=== PATIENT | male | born 1960 | race Caucasian/White ===

== ENCOUNTER → 2023-03-12 | Outpatient (CLI) | payer OTHER, SELFPAY ==
--- NOTE | 2023-03-12 14:26 | CR.HP_ITS ---
CR - History & Physical General Arrival date:: 03/12/23 Arrival time:: 14:28 Date of Referral:: 03/05/23 Date of CR Evaluation:: 03/12/23 Referring Physician: Dr. Catarina Awan Primary Diagnosis: S/P ASD repair, TV repair, NANCY ligation with clip History of Present Cardiac Event Onset Date Heart valve replacement or repair:: Yes Type of Symptoms:: none Interventions with present event:: picked up from X-Ray with fall from truck. Medications Ambulatory Orders Medication Instructions Recorded Lactobacillus combo no.23 PO 03/12/23 amoxicillin 2,000 mg PO PRN 03/12/23 aspirin 81 mg tablet,delayed 81 mg PO DAILY 03/12/23 release lisinopril 10 mg tablet (Zestril) 10 mg PO DAILY 03/12/23 multivitamin 1 tab PO DAILY 03/12/23 testosterone 50 mg/5 gram (1 %) 50 mg transdermal DAILY 03/12/23 transdermal gel (Testim) timolol 0.5 % eye drops 1 drp EACH EYE DAILY 03/12/23 Allergies Allergies gabapentin Allergy (Mild, Verified 03/12/23 14:37) forgetfullness Sleep Disorder Evaluation Hx of Sleep Apnea: No Do you snore loudly (louder than talking or can be heard through closed doors)?: No (Had 3 seperate sleep studies done prior to surgery. All negative) Do you often feel tired/ fatigued/ sleepy during daytime?: Yes (intermittent through the day.) Has anyone observed you stop breathing during sleep?: No History of Hypertension (for STOP score): No STOP Results: Negative Advanced Directives Advanced Directives Power of Refrigeration Mechanic: Yes Living Will: Yes Advance Directives Information Provided: No Advance Directives on File: No DNR Order?:: No MOLST See MOLST form: No Past Medical History Covid-19 Screening Physicial Symptoms Fever: No Unexplained muscle aches: No Current respiratory symptoms: No Upper respiratory infections symptoms: No Gastro-intestinal symptoms: No Pxy-Whsi-Ptcahp symptoms: No Other Clinical Concerns Has tested positive for COVID-19 in last 30 days: No Date of testin03/12/23 (fully vaccinated) Exposure Risk Had contact w/person w/symptoms or Covid-19 (+) last 14 days: No Has High Risk Exposures ID'd by Health dept/Inf Control team: No Pertinent Comorbidities 65 years or older:: No Lives in Assisted Living facility:: No Has a chronic lung disease or moderate to severe asthma:: No Has a serious heart condition:: Yes Immunocompromised:: No Severely obese (Body Mass Index of 40 or higher):: No Diabetic:: No Has chronic kidney disease undergoing dialysis:: No Has liver disease:: Yes Past Medical Illness Past Medical History (Updated 03/12/23 @ 14:47 by Flip Moreno CRT, [employer] LEADER, BS) Abnormal cardiovascular stress test R94.39 Arthritis, 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 Benign neoplasm of colon D12.6 Cataract (lens) fragments in eye following cataract surgery H59.029 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 M54.42, G89.29 Colonic polyp K63.5 Congenital hydrocephalus Q03.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 Degenerative disk disease 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 Encounter for colonoscopy due to history of colonic polyp Z12.11, Z86.010 GERD (gastroesophageal reflux disease) K21.9 Glaucoma H40.9 Hearing loss H91.90 Leukopenia D72.819 Mixed dyslipidemia E78.2 Ostium secundum type atrial septal defect Q21.11 Other secondary pulmonary hypertension I27.29 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 Renal cyst N28.1 Right ventricular dysfunction I51.9 Spasm of back muscles M62.830 Past Surgical History Past Surgical History (Updated 03/12/23 @ 14:47 by Flip Moreno CRT, H[employer] RES[employer] LEADER, BS) Vasectomy status Z98.52 Social History Smoking History Smoking Status: Former smoker (Quit smoking 30 years ago.) Hx Tobacco Use: No Hx Smoking Exposure: No Alcohol Use Alcohol Usage: No Substance Abuse Hx Substance Use: No Occupation Occupation (List type of work in comments):: Retired Hobbies, Recreation, Social Activities Hobbies: Walking, Exercise and Other (travel) Recreational Activities: I am able to engage in most, but not all activities Social Environment Status Marital Status: Current Living Arrangements Living Environment:: Family Children How many children do you have?: 2 Do any of your children live nearby?: No ([place], [place]) Safety Do you feel safe in your surroundings?: Yes Assistance Do you need any assistance at home?: no Review of Systems Review of Systems Hints Review of Present Symptoms: Reports Shortness of Breath with Exertion (passable, minor), Fatigue (very minor), Heart Arrhythmia/Irregularities (NSR, post operative developed Right BBB, atrial flutter), Appetite - Normal and Sleep - Normal; Denies Shortness of Breath at Rest, Operative Discomfort, Angina, Dizziness/Lightheadedness, Appetite - Special Diet or Sexual Changes Pain Is Patient Pain Free?: Yes Pain Location: other (shoulders still sore from surgery, ) Pain Level: 10/20 Risk Factor Assessment Vital Signs Respiratory Rate: 12 Pulse Ox: 97 Blood Pressure: 102/58 Pulse Pulse Rate: 71 Pulse Rhythm: Regular Hypertension Blood Pressure Sitting - Left Arm: 102/56 Diabetes Nutrition Referral for Diabetes: No Obesity Height: 6 ft 1 in Weight:: 175 lb Weight in Pounds: 175.0 lbs Weight Source: Stated by Patient Body Mass Index (BMI): 23.1 Physical Inactivity Physical Inactivity: Recreational activity (walking 1 mile per day at relaxed pace) Risk Stratification Risk Guidelines: Lowest Risk: Risk Factor for Smoking, Risk Factor for Dyslipidemia, Risk Factor for Diabetes, Risk Factor for Obesity, Risk Factor for Hypertension, Risk Factor for Sedentary Lifestyle and Risk Factor for Depression For Smoking Smoking Risk Guidelines For Dyslipidemia Dyslipidemia Risk Guidelines For Diabetes Mellitus Diabetes Risk Guidelines For Obesity/Overweight Obesity/Overweight Risk Guidelines For Hypertension Hypertension Risk Guidelines For Sedentary Lifestyle Sedentary Lifestyle Risk Guidelines For Depression Depression Risk Guidelines Motivation Motivation to Participate On a scale of 1 to 10, how prepared are you to commit to attending program?: 10 What do you see as barriers to successfully being able to complete the program?: jamari What do you see as the benefits of succesfully completing the program? In other words, what do you hope to get out of participating in the program?: Get back to somewhat normal, resume regular exercise program adn travel Are there issues you are dealing with that will interfere with completing the program?: no Do you have a spouse or signficant other, family or friends who will help support you to complete the program?: Yes
--- NOTE | 2023-03-12 14:26 | PCM.CR.ITP ---
Diagnosis General Information Admitting Diagnosis: S/P ASD repair with autologous pericardium, TV repair w/36 annuloplasty ring, NANCY ligation with 40 clip Personal Learning Style:: Audio/Visual and Written Barriers to Learning: Hearing Impairment Stage of change r/t lifestyle modifications:: Action Gave educational material for:: Treating Heart Disease, How The Heart Works, What it means to have Heart Disease, How Coronary Artery Disease is Diagnosed, Heart Procedures, What Heart Medications Do, Risk Factors & Modifications, Living an Active Life, Nutrition, Emotions & Heart Disease, Stress Management & Relaxation and Sleep Disorders & Heart Disease Education/Goals Individual Counseling: Initial Assessment: Abnormal Cholesterol Levels Cardiac Rehabilitation Goals Personal Goals: Initial Assessment: Improve management of stress and emotions, Improve energy level, Get back to work, or to resume activities faster and Improve muscle strength and endurance Scale for measuring improvement of personal goals Diagnosis & Disease Process Outcomes/Goals: Pt IDs own risk factors & lifestyle modifications by Session 10, Verbalizes symptoms of angina & response by session 3. and Pt independently manages Plan/Interventions: Assist Pt to ID & engage in lifestyle modification to reduce CVD risk, Instruct on individual risk factors and Review symptoms of angina & emergency actions Safety Referral to Physical Therapy: No Referral to [facility] Case Management: No Fall Risk Assessed:: No Assistive Devices:: None Exercise - Initial Assessment Visit Date of Eval: 03/12/23 Session #:: 0 (pre-program evaluation) Mets: Pre-: >7 METS for 30 minutes by discharge Physician Prescribed Exercise Modalities: Treadmill, Airdyne and NuStep Frequency: 3x/week for 12 weeks [36 sessions] Intensity: 60-80% of age predicted maximum heart rate reserve Duration: 30 - 45 minutes Current METSs:: 3.0 Target Heart Rate:: 104-119 Resting Blood Pressure: 106/62 EKG Type: NSR w/PACs (history of post op A-flutter/RBBB) Current Physical Activity or Exercising minutes: 30 min daily walking 1 mile Outcomes & Goals Goals:: Verbalizes understanding of THR, RPE & goal METS by session 6, Documents in home exercise log/reports 30 min aerobic 5 day/wk by DC and Demonstrates accurate pulse taking by DC Intervention & Plan Exercise Program Goals: Instruct on personal THR & RPE, Instruct on MET level & personal MET goal, Show patient to take own pulse /validate performance until accurate and Instruct on home exercise Physical Activity Home Exercise Physical Activity - Home Exercise: Safe Exercise, Warm-up, Self-monitoring, Cool-Down, Home Exercise > 30 min Daily and Sitting Time <3 hours/daily Outcomes & Goals Outcomes/Goals: Demonstrates correct Warm-up/exercise Cool-Down (S3) if = 2.5 METs, Verbalizes symptoms of exercise intolerance by Session 3 (S3) and Demonstrate safe equipment use (S3) & follows exercise prescrition (6) Intervention & Plan Plan/Intervention: Instruct warm-up & cool-down if exercising at > 2 METs, Instruct on symptoms of exercise intolerance & actions to take, Instruct & monitor on saf and Assess intial functional capacity & safety risk Nutrition - Initial Assessment Visit Date of Eval: 03/12/23 Session #:: 0 (Pre-program evaluation) Cholesterol/Lipids (Other Core Measures) Outcomes/Goals: Pt IDs own risk factors & lifestyle modifications by Session 10, Verbalizes symptoms of angina & response by session 3. and Pt independently manages Intervention/Plan: Instruct on personal lipid levels & lipid goals/NCEP guidelines and Instruct on cholesterol Diabetes (Other Core Measures) Diabetes Type: Not Applicable Weight Mgt (Other Care) Not Applicable: Yes Height: 6 ft 1 in Weight:: 175 lb BMI: 23.1 Diagnosis Overweight/Obesity BMI> 30% ICD-10 E66: No Diagnosis High BMI/Morbid Obesity BMI> 35% ICD-10 Z68: No Outcomes/Goals: Pt sets, maintains & shows weight loss goal & trend during rehab Intervention/Plan: Instruct on ideal BMI & set weight loss goal w/patient Healthy Eating Habits Will attend diet classes:: Yes Outcomes/Goals:: Consume diet rich in vegs,fruits,whole grain/high fiber,fish,lean meat and Limit sat/trans fats,cholesterol & added salts & sugars Education Gave educational materials for:: Healthy eating Core - Initial Assessment Visit Date of Eval: 03/12/23 Session #:: 0 (pre-program evaluation) Medication Compliance Preventative Medication(s):: Aspirin and Statin/lipid H/O mental health issues: depression, anxiety, or addiction?: No Doesn?t believe in the benefits of treatment?: No Believes medications are unnecessary or harmful?: No Has a concern about medication side effects?: No Expresses concern over the cost of medications?: No Outcomes/Goals: Verbalizes medications,desired effect & common side effects @ DC, Pt self-reports following medication regimen and Keeps card in wallet w/medications listed by DC Interventions/plans: Instruct on medication effects & side effects, Review medication list w/patient every two weeks and Instruct importance of taking meds as ordered & assist problem solving Tobacco Use Tobacco Use: Non-smoker Hypertension Hypertension Diagnosis:: Not Applicable [place] [employer] Hypertension Guidelines Tobacco Cessation Referral Smoking Cessation Referral:: No Individual Education/Counseling:: No Education Schedule Given:: Yes Psychosocial - Initial Assess VIsit Date of Eval: 03/12/23 Session #:: 0 (Pre-program evaluation) Not Applicable: Yes History of previous Mental disease:: No Target Goals Target Goals Psychosocial Test Tool Used:: Cotera QOL Cardiac and PHQ-9 Questionnaire phq-9 Severity Referral to Behavioral Health PS - Interventions: Yes: Attend Stress Management Classes and No: Referral to Behavioral Health if PHQ-9 score >9:, No: Referral to [facility] and No: Referral to Physician if PHQ-9 if score is 5-9: Outcomes/Goals: See list Psychosocial Outcomes/Goals:: ID's personal stressors & 2 strategies to manage stress by discharge Intervention/Plan: See List Interventions/Plan:: Assess stressors,coping strategies & signs of derpression on admission, Instruct/assist pt to develop coping & personal stress Mgt strategies, Instruct patient to recognize signs & symptoms of depression and Instruct patient to recog Patient Health Questionnaire PHQ-9 Screening Initial Assessment: 1. Little interest or pleasure in doing things: Several days 2. Feeling down, depressed, or hopeless: Several days 3. Trouble falling or staying asleep, or sleeping too much: More than half the days 4. Feeling tired or having little energy: Nearly every day 5. Poor appetite or overeating: More than half the days 6. Feeling bad about yourself -- or that you are a failure or have let yourself or your family down: Not at all 7. Trouble concentrating on things, such as reading the newspaper or watching television: Several days 8. Moving or speaking so slowly that other people could have noticed. Or the opposite - being so fidgety or restless that you have been moving around a lot more than usual: Not at all 9. Thoughts that you would be better off , or of hurting yourself in some way: Not at all Total Score: 10 SUNSHINE-Q SV Test Statements CAD is a disease of the arteries in the heart: False Examples of risk factors for heart disease: True Angina is chest pain or discomfort: True The benefits of resistance training include: True Eating more meat and dairy products: False Anti-platelet medications such as aspirin are important: True The only effective way to manage stress: False An exercise warm-up slowly increases heart rate: True Prepared, processed foods usually have high sodium: True Depression is common after a heart attack: True The statin medications lower cholesterol: True To control blood pressure, lower the amount of sodium: True If someone gets chest discomfort during walking: False Transfats are partially hydrogenated vegetable oils: True Sleep apnea that is not treated increases the risk: True To control cholesterol, one should become a vegetarian: False Someone knows if he/she is exercising at the right level: True Diabetes cannot be prevented with exercise & health eating: False Stress is a large risk for heart attack: True A diet that can help lower blood pressure is rich in: True Total Score Total Correct Responses: 19 Self-Efficacy 6-Item Scale Initial Assessment: We would like to know how confident you are in doing certain activities. Please select your confidence level for: Fatigue Select Number: 8 Physical Discomfort or Pain Select Number: 9 Emotional Distress Select Number: 9 Other Symptoms or Health Problems Select Number: 9 Different Tasks and Activities Select Number: 9 Medication Select Number: 9 Total Score:: 8 Nutrition Survey Nutrition Survey Instructions Scoring Instructions Nutrition Survey Initial: Have you lost >10 lbs over the past 2 months without trying?: No Are you following a special diet at home for diabetes, low fat, or low salt?: Yes Are you interested in meeting with a dietitian for help understanding your diet?: No Do you eat less than 3 meals a day?: No Do you eat fatty meats (padilla, sausage, ribs, etc), fried foods, desserts, large amounts of salad dressings, margarine, butter, or cheese most days?: No Do you have food allergies? [Enter types in comment field]: No Do you eat in restaurants more than 3 times a week?: No Do you season food with salt, seasoning salt, or garlic salt?: No Do you used canned, boxed, frozen meals, or soups, seasoning packets?: No Total Score:: 1 Exercise - Final/Discharge Physician Prescribed Exercise Modalities: Treadmill, Airdyne and NuStep Frequency: 3x/week for 12 weeks [36 sessions] Intensity: 60-80% of age predicted maximum heart rate reserve Current METSs:: 3.0 Target Heart Rate:: 104-119 Nutrition - 30-Day Assessment Weight Mgt (Other Care) Height: 6 ft 1 in Weight:: 175 lb BMI: 23.1 Nutrition - 60-Day Assessment Weight Mgt (Other Care) Height: 6 ft 1 in Weight:: 175 lb BMI: 23.1 Core - 30-Day Assessment Visit Session #:: 0 (pre-program evaluation) Psychosocial - 30-Day Assess Target Goals Target Goals Referral to Behavioral Health PS - Interventions: Yes: Attend Stress Management Classes and No: Referral to Behavioral Health if PHQ-9 score >9:, No: Referral to [facility] and No: Referral to Physician if PHQ-9 if score is 5-9: Psychosocial - 60-Day Assess Target Goals Target Goals Referral to Behavioral Health PS - Interventions: Yes: Attend Stress Management Classes and No: Referral to Behavioral Health if PHQ-9 score >9:, No: Referral to [facility] and No: Referral to Physician if PHQ-9 if score is 5-9: Psychosocial - 90-Day Assess Target Goals Target Goals Referral to Behavioral Health PS - Interventions: Yes: Attend Stress Management Classes and No: Referral to Behavioral Health if PHQ-9 score >9:, No: Referral to [facility] and No: Referral to Physician if PHQ-9 if score is 5-9: Psychosocial - Final Assessmen Target Goals Target Goals Referral to Behavioral Health PS - Interventions: Yes: Attend Stress Management Classes and No: Referral to Behavioral Health if PHQ-9 score >9:, No: Referral to [facility] and No: Referral to Physician if PHQ-9 if score is 5-9: Nutrition - 90-Day Assessment Weight Mgt (Other Care) Height: 6 ft 1 in Weight:: 175 lb BMI: 23.1 Nutrition - Final Assessment Weight Mgt (Other Care) Height: 6 ft 1 in Weight:: 175 lb BMI: 23.1
[2023-03-12 14:57] VITALS: PULSE 71; RESP 12; O2SAT 97
[2023-03-12 15:00] VITALS: BP 102/56; BP 102/58; BMI 23.1
[2023-03-12 15:41] VITALS: BP 106/62; BMI 23.1
== END | disposition home or self-care (01) ==
DX: Z00.00 Encounter for general adult medical examination without abnormal findings (principal)

== ENCOUNTER 2023-04-11 14:30 | Outpatient (RCR) | payer OTHER, SELFPAY | END 2023-04-12 23:59 | LOC: CR 14:30 | DX: Z95.2 Presence of prosthetic heart valve | CPT/HCPCS: 93798 ==

== ENCOUNTER 2023-05-11 14:30 | Outpatient (RCR) | payer OTHER, SELFPAY ==
[2023-03-12 15:41] VITALS: BMI 23.1
--- NOTE | 2023-05-11 11:30 | CR.ITP_ITS ---
Nutrition - Initial Assessment Weight Mgt (Other Care) Height: 6 ft 1 in Weight:: 182 lb BMI: 24.0 Psychosocial - Initial Assess Target Goals Target Goals Referral to Behavioral Health PS - Interventions: Yes: Attend Stress Management Classes and No: Referral to Behavioral Health if PHQ-9 score >9:, No: Referral to [facility] and No: Referral to Physician if PHQ-9 if score is 5-9: Patient Health Questionnaire PHQ-9 Screening 60-Day Re-eval Assessment: 1. Little interest or pleasure in doing things: Not at all 2. Feeling down, depressed, or hopeless: Not at all 3. Trouble falling or staying asleep, or sleeping too much: Several days 4. Feeling tired or having little energy: Several days 5. Poor appetite or overeating: Several days 6. Feeling bad about yourself -- or that you are a failure or have let yourself or your family down: Not at all 7. Trouble concentrating on things, such as reading the newspaper or watching television: Not at all 8. Moving or speaking so slowly that other people could have noticed. Or the opposite - being so fidgety or restless that you have been moving around a lot more than usual: Not at all 9. Thoughts that you would be better off , or of hurting yourself in some way: Not at all How difficult have these problems made it for you to do your work, take care of things at home, or get along with other people?: Not difficult at all Total Score: 3 Self-Efficacy 6-Item Scale 60-Day Re-eval Assessment: We would like to know how confident you are in doing certain activities. Please select your confidence level for: Fatigue Select Number: 9 Physical Discomfort or Pain Select Number: 9 Emotional Distress Select Number: 10 Other Symptoms or Health Problems Select Number: 10 Different Tasks and Activities Select Number: 10 Medication Select Number: 10 Total Score:: 9 Nutrition Survey Nutrition Survey Instructions Scoring Instructions Exercise - 60-day Assessment Visit Date of Eval: 05/11/23 Session #:: 19 Physician Prescribed Exercise Modalities: Treadmill, Airdyne and NuStep Frequency: 3x/week for 12 weeks [36 sessions] Intensity: 60-80% of age predicted maximum heart rate reserve Duration: 30 - 45 minutes Current METSs:: 6.0 Target Heart Rate:: 104-119 Current RPE:: 12-15 Maximum Excercise HR:: 124 Resting Blood Pressure: 110/60 Maximum Exercise Blood Pressure: 154/58 EKG Type: NSR to sinus tach with incomplete BBB rare PACs PVCs Outcomes & Goals Goals:: Verbalizes understanding of THR, RPE & goal METS by session 6, Documents in home exercise log/reports 30 min aerobic 5 day/wk by DC and Demonstrates accurate pulse taking by DC Intervention & Plan Exercise Program Goals: Instruct on personal THR & RPE, Instruct on MET level & personal MET goal, Show patient to take own pulse /validate performance until accurate and Instruct on home exercise 30-day Reassessments 30 day Reassessments:: Met Physical Activity Home Exercise Physical Activity - Home Exercise: Safe Exercise, Warm-up, Self-monitoring, Cool-Down, Home Exercise > 30 min Daily and Sitting Time <3 hours/daily Outcomes & Goals Outcomes/Goals: Demonstrates correct Warm-up/exercise Cool-Down (S3) if = 2.5 METs, Verbalizes symptoms of exercise intolerance by Session 3 (S3) and Demonstrate safe equipment use (S3) & follows exercise prescrition (6) Intervention & Plan Plan/Intervention: Instruct warm-up & cool-down if exercising at > 2 METs, Instruct on symptoms of exercise intolerance & actions to take, Instruct & monitor on saf and Assess intial functional capacity & safety risk 30-day Reassessments 30 day Reassessments:: Met Nutrition - 30-Day Assessment Weight Mgt (Other Care) Height: 6 ft 1 in Weight:: 182 lb BMI: 24.0 Nutrition - 60-Day Assessment Program Goals Nutrition Program Goals Patient has diagnosis of Hyperlipidemia (ICD E78)?: Yes Visit Date of Eval: 05/11/23 Session #:: 19 Cholesterol/Lipids (Other Core Measures) Determine presence & major risk factors that modify LDL goal: Hypertension or hypertensive medication and Age men > 45 years; women >/= 55 years Outcomes/Goals: Pt IDs own risk factors & lifestyle modifications by Session 10, Verbalizes symptoms of angina & response by session 3. and Pt independently manages Intervention/Plan: Instruct on personal lipid levels & lipid goals/NCEP guidelines and Instruct on cholesterol Referral to dietitian:: Yes 30-day Reassessments:: Progressing Diabetes (Other Core Measures) Diabetes Type: Not Applicable Weight Mgt (Other Care) Height: 6 ft 1 in Weight:: 182 lb BMI: 24.0 Diagnosis Overweight/Obesity BMI> 30% ICD-10 E66: No Diagnosis High BMI/Morbid Obesity BMI> 35% ICD-10 Z68: No Outcomes/Goals: Pt sets, maintains & shows weight loss goal & trend during rehab Intervention/Plan: Instruct on ideal BMI & set weight loss goal w/patient 30 day Reassessments:: Met Healthy Eating Habits Outcomes/Goals:: Consume diet rich in vegs,fruits,whole grain/high fiber,fish,lean meat and Limit sat/trans fats,cholesterol & added salts & sugars Intervention/Plan:: Assess current eating habits 30-day Reassessments:: Met Education Gave educational materials for:: Healthy eating Core - 60-Day Assessment Visit Date of Eval: 05/11/23 Session #:: 19 Medication Compliance Preventative Medication(s):: Aspirin and Beta jennifer H/O mental health issues: depression, anxiety, or addiction?: No Doesn?t believe in the benefits of treatment?: No Believes medications are unnecessary or harmful?: No Has a concern about medication side effects?: No Expresses concern over the cost of medications?: No Outcomes/Goals: Verbalizes medications,desired effect & common side effects @ DC, Pt self-reports following medication regimen and Keeps card in wallet w/medications listed by DC Interventions/plans: Instruct on medication effects & side effects, Review medication list w/patient every two weeks and Instruct importance of taking meds as ordered & assist problem solving 30-day Reassessments:: Met Tobacco Use Tobacco Use: Non-smoker Hypertension Hypertension Diagnosis:: Hypertension ICD-10 I10 Resting Blood Pressure:: 110/60 [place] [employer] Hypertension Guidelines Peak Exercise Blood Pressure:: 154/58 Outcomes/Goals: Able to verbalize/achieve optimal blood pressure <130/80 and Incorporates diet changes & exercise for blood pressure control by DC Interventions/plan: Instruct on optimal blood pressure, hypertension & medications and Instruct on effects of sodium, alcohol, stress, exercise &hypertension 30 day Reassessments:: Met Tobacco Cessation Referral Smoking Cessation Referral:: No Individual Education/Counseling:: No Education Schedule Given:: Yes Psychosocial - 30-Day Assess Target Goals Target Goals Referral to Behavioral Health PS - Interventions: Yes: Attend Stress Management Classes and No: Referral to Behavioral Health if PHQ-9 score >9:, No: Referral to [facility] and No: Referral to Physician if PHQ-9 if score is 5-9: Outcomes/Goals: See list Psychosocial Outcomes/Goals:: ID's personal stressors & 2 strategies to manage stress by discharge Psychosocial - 60-Day Assess VIsit Date of Eval: 05/11/23 Session #:: 19 Not Applicable: Yes History of previous Mental disease:: No Target Goals Target Goals Psychosocial Test Tool Used:: PHQ-9 Questionnaire phq-9 Severity Referral to Behavioral Health PS - Interventions: Yes: Attend Stress Management Classes and No: Referral to Behavioral Health if PHQ-9 score >9:, No: Referral to [facility] and No: Referral to Physician if PHQ-9 if score is 5-9: Outcomes/Goals: See list Psychosocial Outcomes/Goals:: ID's personal stressors & 2 strategies to manage stress by discharge Intervention/Plan: See List Interventions/Plan:: Assess stressors,coping strategies & signs of derpression on admission 30-day Reassessments: 30 day Reassessments:: Met Psychosocial - 90-Day Assess Target Goals Target Goals Referral to Behavioral Health PS - Interventions: Yes: Attend Stress Management Classes and No: Referral to Behavioral Health if PHQ-9 score >9:, No: Referral to [facility] and No: Referral to Physician if PHQ-9 if score is 5-9: Psychosocial - Final Assessmen Target Goals Target Goals Referral to Behavioral Health PS - Interventions: Yes: Attend Stress Management Classes and No: Referral to Behavioral Health if PHQ-9 score >9:, No: Referral to [facility] and No: Referral to Physician if PHQ-9 if score is 5-9: Nutrition - 90-Day Assessment Weight Mgt (Other Care) Height: 6 ft 1 in Weight:: 182 lb BMI: 24.0 Nutrition - Final Assessment Weight Mgt (Other Care) Height: 6 ft 1 in Weight:: 182 lb BMI: 24.0
[2023-05-11 11:35] VITALS: BP 110/60; BMI 24.0
[2023-05-11 11:42] VITALS: BP 110/60
== END 2023-05-12 23:59 ==
LOC: CR 14:30
DX: Z95.4 Presence of other heart-valve replacement (principal)
CPT/HCPCS: 93798

== ENCOUNTER 2023-06-11 13:00 | Outpatient (RCR) | payer OTHER, SELFPAY ==
[2023-05-13 00:11] VITALS: BP 110/60
--- NOTE | 2023-06-11 10:04 | CR.ITP_ITS ---
Nutrition - Initial Assessment Weight Mgt (Other Care) Height: 6 ft 1 in Weight:: 181 lb BMI: 23.8 Psychosocial - Initial Assess Target Goals Target Goals Patient Health Questionnaire PHQ-9 Screening 90-Day Re-eval Assessment: 1. Little interest or pleasure in doing things: Not at all 2. Feeling down, depressed, or hopeless: Not at all 3. Trouble falling or staying asleep, or sleeping too much: Several days 4. Feeling tired or having little energy: Several days 5. Poor appetite or overeating: Several days 6. Feeling bad about yourself -- or that you are a failure or have let yourself or your family down: Not at all 7. Trouble concentrating on things, such as reading the newspaper or watching television: Not at all 8. Moving or speaking so slowly that other people could have noticed. Or the opposite - being so fidgety or restless that you have been moving around a lot more than usual: Not at all 9. Thoughts that you would be better off , or of hurting yourself in some way: Not at all How difficult have these problems made it for you to do your work, take care of things at home, or get along with other people?: Not difficult at all Total Score: 3 Self-Efficacy 6-Item Scale 90-Day Re-eval Assessment: We would like to know how confident you are in doing certain activities. Please select your confidence level for: Fatigue Select Number: 9 Physical Discomfort or Pain Select Number: 9 Emotional Distress Select Number: 10 Other Symptoms or Health Problems Select Number: 10 Different Tasks and Activities Select Number: 10 Medication Select Number: 10 Total Score:: 9 Nutrition Survey Nutrition Survey Instructions Scoring Instructions Exercise - 90-day Assessment Visit Date of Eval: 06/11/23 Session #:: 31 Physician Prescribed Exercise Modalities: Treadmill, Airdyne and NuStep Frequency: 3x/week for 12 weeks [36 sessions] Intensity: 60-80% of age predicted maximum heart rate reserve Duration: 30 - 45 minutes Current METSs:: 8 Target Heart Rate:: 119-135 Current RPE:: 11-13 Maximum Excercise HR:: 124 Resting Blood Pressure: 118/60 Maximum Exercise Blood Pressure: 134/62 EKG Type: SB to ST with rare PAC and PVC Outcomes & Goals Goals:: Verbalizes understanding of THR, RPE & goal METS by session 6, Documents in home exercise log/reports 30 min aerobic 5 day/wk by DC, Demonstrates accurate pulse taking by DC and Other additional outcome/goals: see below Intervention & Plan Exercise Program Goals: Instruct on personal THR & RPE, Instruct on MET level & personal MET goal, Show patient to take own pulse /validate performance until accurate, Instruct on home exercise and Other additional plan/int 30-day Reassessments 30 day Reassessments:: Met Physical Activity Home Exercise Physical Activity - Home Exercise: Safe Exercise, Warm-up, Self-monitoring, Cool-Down, Home Exercise > 30 min Daily and Sitting Time <3 hours/daily Outcomes & Goals Outcomes/Goals: Demonstrates correct Warm-up/exercise Cool-Down (S3) if = 2.5 METs, Verbalizes symptoms of exercise intolerance by Session 3 (S3), Demonstrate safe equipment use (S3) & follows exercise prescrition (6) and Other: See below Intervention & Plan Plan/Intervention: Instruct warm-up & cool-down if exercising at > 2 METs, Instruct on symptoms of exercise intolerance & actions to take, Instruct & monitor on saf, Assess intial functional capacity & safety risk and Other See below 30-day Reassessments 30 day Reassessments:: Met Nutrition - 30-Day Assessment Weight Mgt (Other Care) Height: 6 ft 1 in Weight:: 181 lb BMI: 23.8 Nutrition - 60-Day Assessment Weight Mgt (Other Care) Height: 6 ft 1 in Weight:: 181 lb BMI: 23.8 Core - 90 Day Assessment Visit Date of Eval: 06/11/23 Session #:: 31 Medication Compliance Preventative Medication(s):: Aspirin and Beta jennifer H/O mental health issues: depression, anxiety, or addiction?: No Doesn?t believe in the benefits of treatment?: No Believes medications are unnecessary or harmful?: No Has a concern about medication side effects?: No Expresses concern over the cost of medications?: No Outcomes/Goals: Verbalizes medications,desired effect & common side effects @ DC, Pt self-reports following medication regimen, Keeps card in wallet w/medications listed by DC and Other additional outcome/goals: Interventions/plans: Instruct on medication effects & side effects, Review medication list w/patient every two weeks, Instruct importance of taking meds as ordered & assist problem solving and Other additional 30-day Reassessments:: Met Tobacco Use Tobacco Use: Non-smoker Hypertension Hypertension Diagnosis:: Hypertension ICD-10 I10 Resting Blood Pressure:: 118/60 [place] [employer] Hypertension Guidelines Peak Exercise Blood Pressure:: 134/62 Outcomes/Goals: Able to verbalize/achieve optimal blood pressure <130/80, Incorporates diet changes & exercise for blood pressure control by DC and Other additional outcomes/goals Interventions/plan: Instruct on optimal blood pressure, hypertension & medications, Instruct on effects of sodium, alcohol, stress, exercise &hypertension and Other additional plan/interventions 30 day Reassessments:: Met Tobacco Cessation Referral Smoking Cessation Referral:: No Individual Education/Counseling:: No Education Schedule Given:: Yes Psychosocial - 30-Day Assess Target Goals Target Goals Psychosocial - 60-Day Assess Target Goals Target Goals Psychosocial - 90-Day Assess VIsit Date of Eval: 06/11/23 Session #:: 31 History of previous Mental disease:: No Target Goals Target Goals Psychosocial - Final Assessmen Target Goals Target Goals Nutrition - 90-Day Assessment Program Goals Nutrition Program Goals Patient has diagnosis of Hyperlipidemia (ICD E78)?: Yes Visit Date of Eval: 06/11/23 Session #:: 31 Cholesterol/Lipids (Other Core Measures) Determine presence & major risk factors that modify LDL goal: Hypertension or hypertensive medication, Low HDL cholesterol <40 mg/dL*, Family history of premature CHD in Male < 55 years: female <65 yearsFa and Age men > 45 years; women >/= 55 years Outcomes/Goals: Pt IDs own risk factors & lifestyle modifications by Session 10, Verbalizes symptoms of angina & response by session 3., Pt independently manages and Other Additional Outcomes/Goals: Intervention/Plan: Advocate for lipid panel cholesterol medication if applicable, Instruct on personal lipid levels & lipid goals/NCEP guidelines, Instruct on cholesterol and Other additional plan/int 30-day Reassessments:: Met Diabetes (Other Core Measures) Diabetes Type: Not Applicable Weight Mgt (Other Care) Height: 6 ft 1 in Weight:: 181 lb BMI: 23.8 Diagnosis Overweight/Obesity BMI> 30% ICD-10 E66: No Diagnosis High BMI/Morbid Obesity BMI> 35% ICD-10 Z68: No 30 day Reassessments:: Met Healthy Eating Habits Will attend diet classes:: Yes 30-day Reassessments:: Met Education Gave educational materials for:: Signs & symptoms of hypoglycemia, Signs & symptoms of hyperglycemia, Relate diabetes to coronary artery disease and Healthy eating Nutrition - Final Assessment Weight Mgt (Other Care) Height: 6 ft 1 in Weight:: 181 lb BMI: 23.8
[2023-06-11 10:12] VITALS: BP 118/60; BMI 23.8
== END 2023-06-12 23:59 ==
LOC: CR 13:00
DX: Z95.4 Presence of other heart-valve replacement (principal)
CPT/HCPCS: 93798

== ENCOUNTER 2023-06-27 13:00 | Outpatient (RCR) | payer OTHER, SELFPAY ==
[2023-06-13 00:13] VITALS: BP 110/60; BP 118/60
== END 2023-07-12 23:59 ==
LOC: CR 13:00
DX: Z95.4 Presence of other heart-valve replacement (principal)
CPT/HCPCS: 93798

== ENCOUNTER 2024-11-25 14:28 | Emergency (ER) | payer OTHER, SELFPAY ==
[2024-11-25 14:29] VITALS: BP 153/97; PULSE 110; RESP 18; TEMP 35.8; O2SAT 98; BMI 24.5
--- NOTE | 2024-11-25 15:32 | EKG12_ITS ---
Test Reason : REPEAT Blood Pressure : */* mmHG Vent. Rate : 65 BPM Atrial Rate : 260 BPM P-R Int : * ms QRS Dur : 118 ms QT Int : 430 ms P-R-T Axes : 41 46 57 degrees QTcB Int : 447 ms Atrial flutter with 4:1 A-V conduction Incomplete right bundle branch block Abnormal ECG Confirmed by Sina Bonilla ([id number]), order editor MIKAELA BOND ([id number]) on 11/28/2024 6:50:32 AM Referred By: Confirmed By: Sina Bonilla
[2024-11-25 16:10] LABS: Absolute Lymphocyte Count 1.53 X10^3/uL (0.83-4.51); Absolute Neutrophil Count 3.1 X10^3/uL (2.0-7.7); Basophil# 0.04 X10^3/uL; Basophil% 0.8 % (0-1); Eosinophil# 0.07 X10^3/uL; Eosinophils% 1.4 % (0-5); Hematocrit 42.7 % (40-54); Hemoglobin 14.2 g/dL (13.0-16.5); Lymphocyte # 1.53 X10^3/ul (0.83-4.51); Lymphocyte % 30.5 % (19-41); Mean Corp Hgb Conc 33.3 g/dL (32-36); Mean Corpuscular Hgb 28.6 pg (27.0-32.0); Mean Corpuscular Volume 85.9 fL (80-94); Mean Platelet Vol. 10.2 fl (6.2-12.0); Monocyte# 0.31 X10^3/uL; Monocyte% 6.2 % (0-10); NRBC Flagged by Analyzer 0 % (0-5); Neutrophil # 3.05 X10^3/uL (2.7-7.7); Neutrophil % 60.9 % (47-70); Platelet Count 198 K/mm3 (150-450); RBC Distribution Width SD 43.2 fl (35.1-43.9); Red Blood Count 4.97 M/mm3 (4.6-6.2)
--- NOTE | 2024-11-25 16:15 | RAD_ITS ---
PROCEDURE: CHEST PA AND LATERAL 11/25/2024 REASON FOR EXAM: CHEST PAIN TECHNIQUE: Frontal and lateral views of the chest. 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 Heart: The heart size is normal. Mediastinum: The mediastinal contour is unremarkable. Lungs: The lungs are clear. Enlarged central pulmonary artery suggestive of pulmonary arterial hypertension. Bones: The bones are unremarkable. RAD/Chest PA and Lateral IMPRESSION: NO ACUTE FINDINGS. Reading Location: [id number]
[2024-11-25 16:40] LABS: Anion Gap 10 (5-15); BUN 30 mg/dL (4-19); BUN/Creat Ratio 30.5 RATIO (10-20); Calcium,Total 9.3 mg/dL (7.6-11.0); Carbon Dioxide 23.7 mmol/L (21.0-32.0); Chloride 108 mmol/L (98-108); Creatinine, Serum 0.98 mg/dL (0.70-1.20); EST Glomerular Filtration Rate 87 (>60); Glucose 110 mg/dL (70-99); Potassium 4.1 mmol/L (3.3-5.1); Sodium Level 142 mmol/L (133-145); Troponin T High Sensitivity 15 ng/L (<=22)
[2024-11-25 17:43] VITALS: BP 164/92; PULSE 88; RESP 12; O2SAT 98
--- NOTE | 2024-11-25 18:04 | EX.ED.DYSGE1 ---
HPI <SERENE Love - Last Filed: 11/25/24 19:32> History of Present Illness Chief Complaint: Palpitations Narrative Narrative: Patient is a 64-year-old male with history of hypertension, hyperlipidemia, history of atrial septal defect that was reversed and had a open heart surgery in 2022 at [facility]. Patient presents to the emergency department for atrial fibrillation. Patient attempted to donate blood on Sunday which was 4 to 5 days ago, notes that his heart rate was high. Patient had a primary care doctor appointment today, saw that he was in A-fib and sent him to the [facility] apartment. Patient not know he was in A-fib. Pay states he did happen after his surgery, he received a cardioversion in 2022 and he got him out of it. 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 Cataract (lens) fragments in eye following cataract surgery Benign neoplasm of colon Spasm of back muscles Arthritis, lumbar spine Home Medications ?Medication ?Instructions ?Recorded ?Last Taken ?Type Lactobacillus combo no.23 PO 03/12/23 Unknown History amoxicillin 2,000 mg PO PRN 03/12/23 Unknown History aspirin 81 mg tablet,delayed 81 mg PO DAILY 03/12/23 Unknown History release lisinopril 10 mg tablet (Zestril) 10 mg PO DAILY 03/12/23 Unknown History multivitamin 1 tab PO DAILY 03/12/23 Unknown History testosterone 50 mg/5 gram (1 %) 50 mg transdermal DAILY 03/12/23 Unknown History transdermal gel (Testim) timolol 0.5 % eye drops 1 drp EACH EYE DAILY 03/12/23 Unknown History apixaban 5 mg tablet (Eliquis) 5 mg PO BID #60 tabs 11/25/24 Unknown Rx metoprolol succinate 25 mg capsule 25 mg PO DAILY #30 ea 11/25/24 Unknown Rx sprinkle, ext. release 24 hr (Kapspargo Sprinkle) Allergy/AdvReac Type Severity Reaction Status Date / Time gabapentin Allergy Mild forgetfulln Verified 11/25/24 14:28 ess Surgical History (Updated 11/25/24 @ 17:47 by Clementine Corcoran) S/P surgical atrial septal defect closure Vasectomy status Social History Smoking Status: Former smoker ROS <SERENE Love - Last Filed: 11/25/24 19:32> ROS ED ROS Narrative Constitutional: Negative for fever, chills, weight loss, weakness Eyes: Negative for vision loss, vision change, double vision ENT: Negative for any sore throat, ear pain, congestion Cardiovascular: Negative for any chest pain, tightness. Positive palpitations Respiratory: Negative for any cough, sputum production, hemoptysis, dyspnea, dyspnea on exertion, orthopnea Gastrointestinal: Negative for any abdominal pain, nausea, vomiting, diarrhea, constipation, blood in stool, blood in vomit : Negative for any urinary frequency, dysuria, retention, blood in urine Muscle skeletal: Negative for any neck pain, back pain Neurological: Negative for any headache, syncope, dizziness Skin: Negative for any rashes, itching, abrasions, lacerations Psychiatric: Negative for any depression, anxiety, stress, suicidal ideation, homicidal ideation Hematologic: Negative for any excessive bruising, easy bleeding EXAM <SERENE Love - Last Filed: 11/25/24 19:32> Physical Exam Narrative Exam Narrative: Vital signs reviewed. HEET: Head normocephalic atraumatic, TMs clear bilaterally. Posterior pharynx is clear, moist mucous membranes. Nares clear bilaterally. Neck: Supple with no lymphadenopathy or tenderness. No signs of meningismus. Cardiac: Irregular rhythm no murmurs gallops or rubs, equal peripheral pulses bilaterally. Respiratory: Lungs clear to auscultation bilaterally. No chest tenderness. Abdomen: Soft, nontender, nondistended. No abdominal bruit or pulsatile masses. No hepatosplenomegaly Extremities: No peripheral edema, no signs of gross trauma or deformity. Active full range of motion of all extremities. Neuro: Cranial nerves II through XII intact, no focal neurological deficits. Skin: Clean dry and intact with no rash, purpura, petechiae, vesicles or pustules. Backs/flank: No CVA tenderness, no midline spinal tenderness, no deformity. Psych: Normal mood and affect. No SI, HI or acute psychosis. Const Vital Signs: 11/25/24 14:29 11/25/24 17:38 11/25/24 17:43 Temperature 96.5 F L Temperature Source Temporal Pulse Rate 110 H 88 Respiratory Rate 18 12 Blood Pressure 153/97 H 164/92 H Blood Pressure Mean 115 116 Pulse Ox 98 98 Oxygen Delivery Method Room Air Room Air Room Air 11/25/24 19:14 11/25/24 19:33 Temperature 98 F Temperature Source Pulse Rate 63 65 Respiratory Rate 12 14 Blood Pressure 113/78 133/78 H Blood Pressure Mean 89 96 Pulse Ox 99 99 Oxygen Delivery Method Room Air Positive well nourished and well developed General Appearance ED: well developed <Dr. Paul Hernandez DO - Last Filed: 11/25/24 23:07> Physical Exam Const Vital Signs: 11/25/24 14:29 11/25/24 17:38 11/25/24 17:43 Temperature 96.5 F L Temperature Source Temporal Pulse Rate 110 H 88 Respiratory Rate 18 12 Blood Pressure 153/97 H 164/92 H Blood Pressure Mean 115 116 Pulse Ox 98 98 Oxygen Delivery Method Room Air Room Air Room Air 11/25/24 19:14 11/25/24 19:33 Temperature 98 F Temperature Source Pulse Rate 63 65 Respiratory Rate 12 14 Blood Pressure 113/78 133/78 H Blood Pressure Mean 89 96 Pulse Ox 99 99 Oxygen Delivery Method Room Air MDM <SERENE Love - Last Filed: 11/25/24 19:32> MDM Lab Data Labs: Laboratory Results - last 24 hr 11/25/24 11/25/24 16:00 18:00 WBC 5.0 RBC 4.97 Hgb 14.2 Hct 42.7 MCV 85.9 MCH 28.6 MCHC 33.3 RDW Std Deviation 43.2 RDW Coeff of Shakir 14.0 Plt Count 198 MPV 10.2 Immature Gran % (Auto) 0.200 Neut % (Auto) 60.9 Lymph % (Auto) 30.5 [place] % (Auto) 6.2 Eos % (Auto) 1.4 Baso % (Auto) 0.8 Absolute Neuts (auto) 3.1 Absolute Lymphs (auto) 1.53 Nucleated RBC % 0 Sodium 142 Potassium 4.1 Chloride 108 Carbon Dioxide 23.7 Anion Gap 10 BUN 30 H Creatinine 0.98 Estim Creat Clear Calc 89.70 Est GFR (MDRD) Non-Af 87 BUN/Creatinine Ratio 30.5 H Glucose 110 H Calcium 9.3 Troponin T High Sens 15 Troponin T Hi Sens 2 Hr 19 Radiography Diagnostic Testing: Clinical Impression(s) from Imaging Studies Chest X-Ray 11/25/24 16:15 IMPRESSION: NO ACUTE FINDINGS. Reading Location: [facility] EKG Initial EKG was atrial flutter/flutter: Attestation: I personally reviewed and interpreted this EKG as follows: Interpretation: Atrial Fibrillation Comments: Atrial fibrillation/flutter rate 79 bpm, right bundle branch block A flutter: Attestation: I personally reviewed and interpreted this EKG as follows: Interpretation: Atrial Flutter Comments: Atrial flutter with a rate of 65 bpm, QRS duration 118 ms, no acute ST elevation, no acute infarct noted Treatment and Re-Evaluation :: Differential diagnosis includes however is not limited to: Atrial fibrillation, A-fib with RVR, pulmonary embolus, ACS, [place], dehydration electrolyte abnormality Patient appears generally well, vital signs are stable, patient is nontoxic-appearing. for complaints of irregular heartbeat. Patient cannot feel irregular heartbeat. Patient's chest x-ray was negative for any acute process. Laboratory values showed normal CBC, chemistries were unremarkable, initial troponin was 15 and repeat will be drawn. Patient is currently in atrial flutter with variable AV block. Rate 96 bpm, QRS duration 98 ms, no acute ST elevation, no acute infarct noted. Patient repeat troponin was 19 which is negative. Patient did receive Cardizem, this did drop the patient's heart rate to the 65-70. I did speak with cardiology. I believe this was with [facility]. They reached out to the EP team. At this time, patient will be discharged home. Patient replaced on Eliquis twice a day for 5 days as well as metoprolol 25 mg daily. Patient will likely get a cardioversion in the next 3 weeks. He will be given strict return precautions to return here for any worsening dizziness, chest pain fever chills nausea or vomiting. All questions were answered, patient stable for discharge <Dr. Paul Hernandez, DO - Last Filed: 11/25/24 23:07> [facility] Narrative Medical decision making narrative: I have personally performed a face to face assessment of the patient and have reviewed the ARTI Note. I performed a substantive portion of the visit including all aspects of the following. My [place] findings include: History: Patient presents with irregular heartbeat for the past 4 days. Patient states he went to donate blood 4 days ago and he was told his heart rate was high and irregular. Patient denies any symptoms. Patient states he followed up with his primary care physician today who noted that he was still in atrial fibrillation and referred to the emergency department. Patient states he occasionally gets lightheaded. Patient denies any chest pain or shortness of breath. Patient denies any nausea or vomiting. Patient denies any diaphoresis. Exam: Vital signs are stable except for mild tachycardia of 110. Patient is afebrile. Patient is in no acute distress. Oral mucosa is pink and moist. Neck is supple. Trachea is midline. There is no JVD. Heart was irregularly irregular. There are no murmurs noted. Lungs are clear and equal bilaterally. Abdomen is soft. Bowel sounds are normal. There is no tenderness. Cranial nerves II through XII are intact. There are no focal motor or sensory deficits noted. Medical Decision Making: Differential diagnosis includes atrial fibrillation, cardiac dysrhythmia, cardiac ischemia, electrolyte abnormality, pneumonia, bronchitis, and anxiety. EKG will be obtained to assess for cardiac dysrhythmia and cardiac ischemia. Chest x-ray will be obtained to assess for pneumonia or bronchitis. CBC will be obtained to assess for leukocytosis and anemia. Basic metabolic profile will be obtained to assess for electrolyte abnormality renal function. High-sensitivity troponin will be obtained to assess for cardiac ischemia. 2-hour repeat high-sensitivity will be obtained to assess for ongoing cardiac ischemia. Patient was given a dose of Cardizem. CBC was reviewed and was within normal limits. Basic metabolic profile was reviewed. BUN was slightly elevated at 30. The remainder is within normal limits. Initial high-sensitivity troponin was reviewed and was normal at 15. 2-hour repeat high-sensitivity troponin was reviewed and was normal at 19. EKG was obtained. On my independent interpretation, it shows atrial fibrillation with a rate of 96. QRS interval was normal at 98 ms. QTc interval was normal at 487 ms. [place] was normal. There is right ventricular hypertrophy. There are no acute ST or T wave changes noted. PA and lateral chest x-ray was obtained. There are 2 views. On my independent interpretation, lung calvert are clear. There is normal cardiac silhouette. Bony thorax is normal. There is no acute process noted. Radiologist also interpreted the x-ray and agrees. Patient appeared to convert to a normal sinus rhythm while here in the emergency department. Because of this, EKG will be repeated. Repeat EKG showed atrial flutter with 4-1 AV conduction with a rate of 65. QRS interval was normal at 118 ms. QTc interval is normal at 447 ms. [place] was normal. There are no acute ST or T wave changes noted. Case was discussed with cardiology at the [facility]. 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 They recommended placing the patient on Eliquis and metoprolol. Patient was given prescriptions for these. Patient will follow-up with them in 3 weeks. Patient understood and was agreeable with the plan. All questions were answered. Lab Data Labs: Laboratory Results - last 24 hr 11/25/24 11/25/24 16:00 18:00 WBC 5.0 RBC 4.97 Hgb 14.2 Hct 42.7 MCV 85.9 MCH 28.6 MCHC 33.3 RDW Std Deviation 43.2 RDW Coeff of Shakir 14.0 Plt Count 198 MPV 10.2 Immature Gran % (Auto) 0.200 Neut % (Auto) 60.9 Lymph % (Auto) 30.5 [place] % (Auto) 6.2 Eos % (Auto) 1.4 Baso % (Auto) 0.8 Absolute Neuts (auto) 3.1 Absolute Lymphs (auto) 1.53 Nucleated RBC % 0 Sodium 142 Potassium 4.1 Chloride 108 Carbon Dioxide 23.7 Anion Gap 10 BUN 30 H Creatinine 0.98 Estim Creat Clear Calc 89.70 Est GFR (MDRD) Non-Af 87 BUN/Creatinine Ratio 30.5 H Glucose 110 H Calcium 9.3 Troponin T High Sens 15 Troponin T Hi Sens 2 Hr 19 Radiography Diagnostic Testing: Clinical Impression(s) from Imaging Studies Chest X-Ray 11/25/24 16:15 IMPRESSION: NO ACUTE FINDINGS. Reading Location: [facility] Discharge Plan Triage Chief Complaint: Palpitations ED Midlevel Provider: Kendrick Cordero ED Provider: Paul Hernandez Dx/Rx/DC Orders Instructions: ED AFIB, ED Atrial Flutter, ED Palpitations Prescriptions: New Kapspargo Sprinkle 25 mg capsule,sprinkle,ER 24hr 25 mg PO DAILY Qty: 30 1RF Eliquis 5 mg tablet 5 mg PO BID Qty: 60 1RF No Action testosterone [Testim] 50 mg/5 gram (1 %) gel 50 mg transdermal DAILY lisinopril [Zestril] 10 mg tablet 10 mg PO DAILY Lactobacillus combo no.23 [Dominick Probiotic] PO multivitamin Tablet 1 tab PO DAILY amoxicillin 2,000 mg PO PRN Rx Instructions: 1-hour prior to dental procedures timolol 0.5 % drops 1 drp EACH EYE DAILY aspirin 81 mg tablet,delayed release (DR/EC) 81 mg PO DAILY Primary Care Provider: Roberto Mancilla Referrals: Care Physician,No Primary [Non-Staff] - Activity Restrictions/Additional Instructions: Return for any worsening symptoms. Start the metoprolol and medications tomorrow Print Language: Uzbek Disposition Disposition: Home, Self Care Discharge Date/Time: 11/25/24 19:41
[2024-11-25] MEDS: dilTIAZem 25 MG/5 ML Vial 10 MG IV BOLUS (18:34)
[2024-11-25 18:49] LABS: Troponin T High Sens 2 HR 19 ng/L (<=22)
--- NOTE | 2024-11-25 18:58 | EKG12_ITS ---
Test Reason : PALPITATIONS Blood Pressure : */* mmHG Vent. Rate : 96 BPM Atrial Rate : 271 BPM P-R Int : * ms QRS Dur : 98 ms QT Int : 386 ms P-R-T Axes : 57 91 62 degrees QTcB Int : 487 ms Atrial flutter with variable A-V block Incomplete right bundle branch block Abnormal ECG Confirmed by Sina Bonilla ([id number]), proposal editor MIKAELA BOND [id number]) on 11/28/2024 6:52:19 AM Referred By: Confirmed By: Sina Bonilla
[2024-11-25 19:14] VITALS: BP 113/78; PULSE 63; RESP 12; O2SAT 99
[2024-11-25] MEDS: APIXABAN 5 MG TABLET PO (19:32)
[2024-11-25 19:33] VITALS: BP 133/78; PULSE 65; RESP 14; TEMP 36.6; O2SAT 99
== END 2024-11-25 19:41 | disposition home or self-care (01) ==
PROVIDERS: Emergency Provider Emergency Medicine; PCP Family Medicine; Visit Provider Emergency Medicine
DX: I48.92 Unspecified atrial flutter (principal); I48.91 Unspecified atrial fibrillation; I45.10 Unspecified right bundle-branch block; I10 Essential (primary) hypertension; E78.5 Hyperlipidemia, unspecified; H40.9 Unspecified glaucoma; Z87.74 Personal history of (corrected) congenital malformations of heart and circulatory system; Z79.82 Long term (current) use of aspirin; Z79.01 Long term (current) use of anticoagulants; Z79.899 Other long term (current) drug therapy; Z98.890 Other specified postprocedural states
CPT/HCPCS: 71046; 80048; 84484; 85025; 93005; 96374; 99284; A4216